=== PATIENT | male | born 1945 | race Caucasian/White ===

== ENCOUNTER → 2017-04-27 | Outpatient (CLI) | payer MEDICARE, OTHER ==
[~2017-04-27] MED LIST: ADVAIR DIS14 PUFF/DI INH; CELEXA20 MG PO; CENTRAL VITE F1 EACH PO; COUMADIN5 MG PO; COUMADIN7.5 MG PO; FIBERCON625 MG PO; MELATIN3 MG PO; NAMENDA XR21 MG PO; NASONEX17 GM NASBOTH; PRILOSEC40 MG PO; PRINIVIL2.5 MG PO; SAW PALMETTO450 MG PO; TOPROL XL50 M1 PO; TYLENOL ARTHRI650 M1 PO; ZOCOR40 MG PO; ZYLOPRIM300 MG PO; ZYRTEC10 MG PO
== END | disposition short-term general hospital (02) ==
LOC: CLCARD 05:05
DX: I11.0 Hypertensive heart disease with heart failure (principal); I50.22 Chronic systolic (congestive) heart failure; E78.5 Hyperlipidemia, unspecified; F03.90 Unspecified dementia, unspecified severity, without behavioral disturbance, psychotic disturbance, mood disturbance, and anxiety; I35.8 Other nonrheumatic aortic valve disorders